=== PATIENT | female | born 1995 | race Caucasian/White ===

== ENCOUNTER 2017-12-24 08:59 | Observation (INO) | payer OTHER ==
[2017-12-24 09:14] VITALS: BP 129/70
[2017-12-24] MEDS ORDERED: PREN1TAB80 PO (09:14)
[2017-12-24 10:26] VITALS: BP 129/70
== END 2017-12-24 11:35 | disposition home or self-care (01) ==
LOC: 4S 08:59
PROVIDERS: ADMIT Obstetrics & Gynecology; ATTEND Obstetrics & Gynecology
DX: O48.0 Post-term pregnancy (principal); Z3A.40 40 weeks gestation of pregnancy
CPT/HCPCS: 59025; G0378

== ENCOUNTER 2017-12-25 18:01 | Inpatient (IN) | payer OTHER ==
[~2017-12-25] VITALS: Ht 152.4 cm; Wt 72.6 kg
[~2017-12-25 18:01] MED LIST: PREN1TAB80 PO
[2017-12-25] MEDS ORDERED: RINGERS SOLUTION,LACTATED 1,000 ML IV PRN (18:03)
[2017-12-25] MEDS ORDERED: OXYTOCIN 30 UNITS/LACT RINGERS 500 ML IV ONE (18:03)
[2017-12-25] MEDS ORDERED: METHYLERGONOVINE MALEATE 0.2 MG/ML VIAL IM PRN (18:15)
[2017-12-25] MEDS ORDERED: METOCLOPRAMIDE HCL 5 MG/ML 2 ML VIAL IVP PRN (18:15)
[2017-12-25] MEDS ORDERED: FentaNYL CITRATE-PF 100 MCG/2 ML VIAL IVP PRN (18:15)
[2017-12-25] MEDS ORDERED: CITRIC ACID/SODIUM CITRATE 30 ML SOLUTION UDCUP PO PRN (18:15)
[2017-12-25 18:40] VITALS: BP 115/72
[2017-12-25 18:53] LABS: BASOPHILS % (AUTO) 0.3 % (0.0-2.0); EOSINOPHILS % (AUTO) 0.3 % (1.0-6.0); HEMATOCRIT 34.7 % (36-46); HEMOGLOBIN 12.3 g/dL (12.0-16.0); LYMPHOCYTES # (AUTO) 1.6 K/uL (1.0-4.8); LYMPHOCYTES % (AUTO) 22.9 % (22.0-44.0); MEAN CORPUSCULAR HGB CONC 35.5 G/dL (31.0-37.0); MEAN CORPUSCULAR VOLUME 93 fL (80-100); MONOCYTES # (AUTO) 0.4 K/uL (0.1-1.0); MONOCYTES % (AUTO) 6.4 % (2.0-9.0); NEUTROPHILS # (AUTO) 4.9 K/uL (1.8-7.7); NEUTROPHILS % (AUTO) 70.1 % (40.0-70.0); PLATELET COUNT (AUTO) 199 K/uL (150-450); RED BLOOD CELL COUNT(AUTO) 3.74 MIL/uL (4.00-5.20); RED CELL DISTRIBUTION WIDTH 12.8 % (11.5-14.5)
[2017-12-25] MEDS ORDERED: OXYGEN THERAPY IH SCH (20:00)
[2017-12-25] MEDS ORDERED: DINOPROSTONE 10 MG VAGINAL SUPPOSITORY VG ONE (21:45)
[2017-12-26] MEDS: RINGERS SOLUTION,LACTATED 1,000 ML IV SCH ×4 (02:13→17:32)
[2017-12-26] MEDS ORDERED: ROPIVACAINE HCL/PF 0.2% 100 ML ED ONE ×3 (04:12→17:03)
[2017-12-26] MEDS ORDERED: OXYTOCIN 30 UNITS/LACT RINGERS 500 ML IV PRN ×2 (05:18→07:08)
[2017-12-26] MEDS ORDERED: -PHARMACY NOTE- MISC ONE (09:45)
[2017-12-26] MEDS ORDERED: KETAMINE HCL 50 MG/ML 10 ML VIAL IVP ONE (12:00)
[2017-12-26] MEDS ORDERED: MIDAZOLAM HCL 2 MG/2 ML VIAL IVP ONE (12:00)
[2017-12-26] MEDS ORDERED: FentaNYL CITRATE-PF 100 MCG/2 ML VIAL IVP ONE (12:00)
[2017-12-26] MEDS ORDERED: ACETAMINOPHEN 650 MG RECTAL SUPPOSITORY PR ONE (15:15)
[2017-12-26] MEDS ORDERED: BUPIVACAINE HCL/PF 0.25% 10 ML VIAL ONE (15:47)
[2017-12-26] MEDS ORDERED: LIDOCAINE HCL/PF 2% 5 ML VIAL ONE (18:54)
[2017-12-26] MEDS ORDERED: GUM MASTIC/STORAX/MSAL/ALCOHOL LIQUID 0.67 ML VIAL TP ONE (19:01)
[2017-12-26] MEDS ORDERED: RINGERS SOLUTION,LACTATED 1,000 ML IV ONE (19:29)
[2017-12-26] MEDS ORDERED: DEXTROSE 5%-0.45% SODIUM CHL 1,000 ML IV SCH (20:42)
[2017-12-26] MEDS ORDERED: OxyCODONE HCL/ACETAMINOPHEN 5-325 MG TABLET PO PRN (20:45)
[2017-12-26] MEDS ORDERED: GLYCERIN/WITCH HAZEL LEAF 40 PADS JAR TP PRN (20:45)
[2017-12-26] MEDS ORDERED: GENTAMICIN SULFATE 160 MG in DEXTROSE 5%-WATER 50 ML IV ONE (21:30)
[2017-12-26] MEDS: OXYTOCIN 20 UNITS/LACT RINGERS 1,000 ML IV SCH (22:35)
[2017-12-26] MEDS ORDERED: MEPERIDINE HCL/PF 25 MG/0.5 ML AMP IVP PRN (22:45)
[2017-12-26] MEDS ORDERED: DiphenhydrAMINE HCL 50 MG/ML VIAL IVP PRN (22:45)
[2017-12-26] MEDS ORDERED: ONDANSETRON HCL 4 MG/2 ML VIAL IVP PRN (22:45)
[2017-12-26] MEDS ORDERED: NALOXONE HCL 0.4 MG/ML VIAL IVP PRN (22:45)
[2017-12-26] MEDS ORDERED: FentaNYL CITRATE-PF 100 MCG/2 ML VIAL IVP PRN (22:45)
[2017-12-26] MEDS ORDERED: HYDROmorphone 2 MG/ML SYRINGE IVP PRN (22:45)
[2017-12-27] MEDS: FentaNYL CITRATE-PF 100 MCG/2 ML VIAL IVP PRN ×6 (04:11→16:37)
[2017-12-27 06:01] LABS: BASOPHILS % (AUTO) 0.2 % (0.0-2.0); EOSINOPHILS % (AUTO) 0.1 % (1.0-6.0); HEMOGLOBIN 9.5 g/dL (12.0-16.0); LYMPHOCYTES # (AUTO) 1.6 K/uL (1.0-4.8); LYMPHOCYTES % (AUTO) 11.5 % (22.0-44.0); MEAN CORPUSCULAR HEMOGLOBIN 33.1 pg (26.0-34.0); MEAN CORPUSCULAR HGB CONC 35.4 G/dL (31.0-37.0); MEAN CORPUSCULAR VOLUME 94 fL (80-100); MONOCYTES % (AUTO) 7.1 % (2.0-9.0); NEUTROPHILS # (AUTO) 11.3 K/uL (1.8-7.7); NEUTROPHILS % (AUTO) 81.1 % (40.0-70.0); PLATELET COUNT (AUTO)-OB 170 K/uL (150-450); RED BLOOD CELL COUNT(AUTO) 2.88 MIL/uL (4.00-5.20)
[2017-12-27] MEDS: OXYTOCIN 20 UNITS/LACT RINGERS 1,000 ML IV SCH (06:02)
[2017-12-27] MEDS: MAGNESIUM HYDROXIDE SUSPENSION 30 ML UDCUP PO SCH ×2 (08:00→20:56)
[2017-12-27] MEDS: IBUPROFEN 600 MG TABLET PO PRN (19:14)
[2017-12-27] MEDS: OxyCODONE HCL/ACETAMINOPHEN 5-325 MG TABLET PO PRN (19:14)
[2017-12-28] MEDS: IBUPROFEN 600 MG TABLET PO PRN ×3 (01:51→15:55)
[2017-12-28] MEDS: OxyCODONE HCL/ACETAMINOPHEN 5-325 MG TABLET PO PRN ×3 (07:47→15:55)
[2017-12-28] MEDS: MAGNESIUM HYDROXIDE SUSPENSION 30 ML UDCUP PO SCH ×2 (07:47→21:00)
[2017-12-28] MEDS ORDERED: SENNA/DOCUSATE SODIUM 187-50 MG TABLET PO ONE (11:15)
[2017-12-29] MEDS: IBUPROFEN 600 MG TABLET PO PRN ×2 (01:03→08:19)
[2017-12-29] MEDS: OxyCODONE HCL/ACETAMINOPHEN 5-325 MG TABLET PO PRN ×2 (01:03→08:19)
[2017-12-29] MEDS ORDERED: IBUP-2071 PO (09:19)
== END 2017-12-29 12:00 | disposition home or self-care (01) | DRG 766 ==
LOC: 4S 18:01 → OBSVTOIN 18:01 → 4S 12-26 22:00
PROVIDERS: ADMIT Obstetrics & Gynecology; ATTEND Obstetrics & Gynecology
PROC: 10D00Z1 Extraction of Products of Conception, Low, Open Approach (ICD-10-PCS; principal; 2017-12-26)
DX: O62.2 Other uterine inertia (principal); Z3A.40 40 weeks gestation of pregnancy; Z37.0 Single live birth
CPT/HCPCS: 86850; 86900; 86901; J1580; J2250; J2590; J2765; J2795; J3010; J3490; J7060; J7120